=== PATIENT | female | born 1995 | race African-American/Black ===

== ENCOUNTER 2021-01-22 12:47 | Emergency (ER) | payer MEDICAID ==
[~2021-01-22] VITALS: Ht 160 cm; Wt 57.0 kg
[2021-01-22] MEDS ORDERED: TETANUS, DIPHTHERIA, PERTUSSIS VAC/PF 0.5ML (>7YR OLD) IM ONE (13:45)
[2021-01-22] MEDS ORDERED: BACITRACIN ZINC OINT UDPKT TOP ONE (13:45)
[2021-01-22] MEDS ORDERED: LIDOCAINE HCL/EPINEPHRINE 1%-EPI 1:100,000 10 ML VIAL IJ ONE (13:45)
[2021-01-22] MEDS ORDERED: LIDOCAINE HCL/EPINEPHRINE 1%-EPI 1:100,000 20 ML VIAL INFIL NR (14:00)
[2021-01-22] MEDS ORDERED: IBUP-2029 MT (16:43)
[2021-01-22] MEDS ORDERED: DOXY100C2 MT (16:43)
[2021-01-22] MEDS ORDERED: METR-167 MT (16:43)
[2021-01-22 17:08] VITALS: BP 115/89
== END 2021-01-22 17:10 | disposition home or self-care (01) ==
LOC: ER 12:47
DX: S09.8XXA Other specified injuries of head, initial encounter (principal); S01.112A Laceration without foreign body of left eyelid and periocular area, initial encounter; S61.551A Open bite of right wrist, initial encounter; W54.0XXA Bitten by dog, initial encounter; M25.531 Pain in right wrist; M25.551 Pain in right hip; Y08.89XA Assault by other specified means, initial encounter; Y93.9 Activity, unspecified; Y92.9 Unspecified place or not applicable; Z88.0 Allergy status to penicillin
CPT/HCPCS: 70450; 73110; 73502; 81025; 90471; 90715; 99284; J3490

== ENCOUNTER 2021-02-18 15:55 | Emergency (ER) | payer MEDICAID ==
[~2021-02-18] VITALS: Ht 157.5 cm; Wt 65.0 kg
[~2021-02-18 15:55] MED LIST: DOXY100C2 MT; IBUP-2029 MT; METR-167 MT
[2021-02-18 16:16] VITALS: BP 130/76
== END 2021-02-18 21:13 | disposition home or self-care (01) ==
LOC: ER 15:55
DX: S01.112D Laceration without foreign body of left eyelid and periocular area, subsequent encounter (principal); F12.10 Cannabis abuse, uncomplicated; Z88.0 Allergy status to penicillin; Z98.890 Other specified postprocedural states; X58.XXXD Exposure to other specified factors, subsequent encounter
CPT/HCPCS: 99281; Z7610